=== PATIENT | female | born 1970 | race Caucasian/White ===

== ENCOUNTER 2016-11-03 07:39 | Outpatient (CLI) | payer MEDICARE ==
[2016-11-03 08:07] LABS: Hemoglobin 14.7 g/dL (12.0-16.0); Mean Corpuscular HGB CONC 33.6 g/dL (32.0-36.0); Mean Corpuscular Hemoglobin 32.9 pg (27.0-31.0); Mean Corpuscular Volume 97.8 fl (81.0-99.0); Mean Platelet Volume 8.4 fL (7.4-10.4); Platelet Count 203 thou/uL (130-400); RBC Distribution Width 11.3 % (11.5-14.5); Red Blood Cell (RBC) Count 4.48 mill/uL (4.20-5.40); White Blood Cell (WBC) Count 5.6 thou/uL (4.8-10.8)
[2016-11-03 09:12] LABS: Albumin 3.9 g/dL (3.5-5.0); Anion Gap 13 mmol/L (10-20); BUN (Urea Nitrogen) 19 mg/dL (7.0-18.7); BUN/Creatinine Ratio 13.77; Calc. Creatinine Clearance 0 mL/min (70-130); Calcium 9.2 mg/dL (7.8-10.44); Carbon Dioxide 23 mmol/L (22-29); Chloride 108 mmol/L (98-107); Estimated GFR-MDRD 41; Glucose 115 mg/dL (70-105); Phosphorus 2.9 mg/dL (2.3-4.7); Potassium 4.5 mmol/L (3.5-5.1); Sodium 139 mmol/L (136-145)
[2016-11-03 09:37] LABS: Bilirubin Negative (Negative); Blood, Urine Negative (Negative); Clarity Clear (Clear); Glucose, Urine (Dipstick) Negative (Negative); Leukocyte Negative (Negative); Nitrite Negative (Negative); Protein, Urine (Dipstick) Negative (Neg-Trace); Specific Gravity, Urine 1.015 (1.005-1.030); Urobilinogen 0.2 mg/dL (0.2-1.0)
[2016-11-03 18:20] LABS: Creatinine, Urine 99.78 mg/dL (47-110); Protein, Urine Random Quant Less than 10 mg/dL
== END 2016-11-03 07:40 | disposition home or self-care (01) ==
LOC: MADLAB 07:39
PROVIDERS: ATTEND Internal Medicine Nephrology
DX: E78.5 Hyperlipidemia, unspecified (principal); E11.22 Type 2 diabetes mellitus with diabetic chronic kidney disease; N18.2 Chronic kidney disease, stage 2 (mild); R80.9 Proteinuria, unspecified; N20.0 Calculus of kidney; I25.10 Atherosclerotic heart disease of native coronary artery without angina pectoris
CPT/HCPCS: 36415; 80069; 81003; 82570; 84156; 85027